=== PATIENT | female | born 1955 | race Caucasian/White ===

== ENCOUNTER 2020-02-14 05:59 | Day surgery (SDC) | payer OTHER ==
[~2020-02-14] VITALS: Ht 172.7 cm; Wt 188.0 kg
[~2020-02-14 05:59] MED LIST: DEXA4 PO
--- NOTE | 2020-02-14 07:19 | NUR ---
Ambulatory in Day Surgery History, Chart, Medications and Allergies reviewed before start of procedure.Patient confirms NPO status and agrees with scheduled surgery. Lungs clear T/O to Auscultation. Patient reports completing Chlorhexadine shower X2 prior to admission to hospital.Surgical site prepped with 2% Chlorhexidine cloth wipe.
--- NOTE | 2020-02-14 13:02 | NUR ---
ASSUMED CARE OF PT AND REPORT FROM ECHO MONZON RN. PT AWAKE AND ORIENTED. DRESSINGS X3 TO ABDOMEN CDI. PT STATES "I HAVE A LITTLE PAIN". STATES IT IS AT A TOLERABLE LEVEL AND HAS A HARD TIME GIVING IT A NUMBER. PT UP TO BATHROOM WITHOUT DIFFICULTY. PROVIDED DISCHARGE INSTRUCTIONS, PT UP AND DRESSED WITHOUT DIFFICULTY, ALL BELONINGS RETURNED, WAS UNABLE TO REACH SON BY PHONE TWICE. Patient up to Ambulate independently. Gait steady. Discharge instructions reviewed with patient. Patient verbalizes understanding. Copy given to patient to take home. Dressing to procedure site clean, dry, intact with no visible drainage, swelling, erythema or bruising noted. Patient States Post-Procedure ride home has been arranged. Discharged via wheelchair to private car for ride home. TRANSFEREED CARE BACK TO [facility] TILL PT WAS TAKEN TO [place] [facility] AT 1210.
== END 2020-02-14 22:46 | disposition home or self-care (01) ==
LOC: ORSCMMR 05:59 → ORD 07:30 → ORSCMMR 22:46
PROVIDERS: Surgery
PROC: 8E0W4CZ Robotic Assisted Procedure of Trunk Region, Percutaneous Endoscopic Approach (ICD-10-PCS; principal; 2020-02-14 07:30)
PROC: 0YU64JZ Supplement Left Inguinal Region with Synthetic Substitute, Percutaneous Endoscopic Approach (ICD-10-PCS; principal; 2020-02-14 07:30)
DX: K40.90 Unilateral inguinal hernia, without obstruction or gangrene, not specified as recurrent (principal); Z87.891 Personal history of nicotine dependence
CPT/HCPCS: 49650; S2900; A9270-GY; C1781; J0690; J1100; J1885; J2250; J2405; J2704; J2710; J2765; J3010; J7120

== ENCOUNTER 2020-07-23 11:56 | Day surgery (SDC) | payer OTHER ==
[~2020-07-23] VITALS: Ht 170.2 cm; Wt 100.3 kg
--- NOTE | 2020-07-23 13:07 | NUR ---
07/23/20 1307 David Forman FLUID DEFICIT 450. NOTIFIED.
--- NOTE | 2020-07-23 13:34 | NUR ---
07/23/20 1334 Belen,Priti DENIES PAIN OR DISCOMFORT. AMBU TO BR. GAIT STEADY. DC INSTRUCTIONS GIVEN
== END 2020-07-23 13:38 | disposition home or self-care (01) ==
LOC: ORSCSDS 11:56
PROVIDERS: Obstetrics & Gynecology
PROC: 0UDB8ZX Extraction of Endometrium, Via Natural or Artificial Opening Endoscopic, Diagnostic (ICD-10-PCS; principal; 2020-07-23 13:00)
DX: N84.0 Polyp of corpus uteri (principal); R93.89 Abnormal findings on diagnostic imaging of other specified body structures; I10 Essential (primary) hypertension; E66.9 Obesity, unspecified; Z68.34 Body mass index [BMI] 34.0-34.9, adult
CPT/HCPCS: 88305; J0690; J1100; J2250; J2405; J2704; J3010

== ENCOUNTER → 2020-08-13 | Outpatient (CLI) | payer OTHER ==
[2020-08-14 09:46] LABS: Stool Occult Bld Immuno 1 Negative (NEGATIVE)
== END | disposition home or self-care (01) ==
LOC: PLD 11:30 → LAB SHORT 11:30
PROVIDERS: Family Medicine
DX: Z12.11 Encounter for screening for malignant neoplasm of colon (principal)
CPT/HCPCS: G0328

== ENCOUNTER → 2021-11-18 | Outpatient (CLI) | payer OTHER ==
[2021-11-19 10:59] LABS: Stool Occult Bld Immuno 1 Negative (NEGATIVE)
== END | disposition home or self-care (01) ==
LOC: LAB SHORT 08:11
PROVIDERS: Family Medicine
DX: Z12.11 Encounter for screening for malignant neoplasm of colon (principal)
CPT/HCPCS: 82274

== ENCOUNTER → 2022-06-04 | Outpatient (CLI) | payer OTHER | END | disposition home or self-care (01) | LOC: LAB 11:50 → LAB SHORT 11:50 | DX: R35.0 Frequency of micturition (principal) | CPT/HCPCS: 87086 ==

== ENCOUNTER → 2023-01-13 | Outpatient (CLI) | payer OTHER ==
[2023-01-13 13:56] LABS: Stool Occult Bld Immuno 1 Negative (NEGATIVE)
== END | disposition home or self-care (01) ==
LOC: LAB 10:39 → LAB SHORT 10:39
PROVIDERS: Family Medicine
DX: Z12.11 Encounter for screening for malignant neoplasm of colon (principal)
CPT/HCPCS: G0328